=== PATIENT | male | born 2000 | race Caucasian/White ===

== ENCOUNTER → 2019-11-06 | Outpatient (REF) | payer OTHER | LOC: M LAB REF 18:18 | PROVIDERS: ATTEND Physician Assistant | DX: J00 Acute nasopharyngitis [common cold] (principal) ==

== ENCOUNTER → 2024-05-16 | Outpatient (REF) | LOC: M EMP 09:19 | PROVIDERS: ATTEND Family Medicine | DX: Z11.52 Encounter for screening for COVID-19 (principal) ==